=== PATIENT | male | born 1965 | race Caucasian/White ===

== ENCOUNTER 2018-10-29 09:37 | Day surgery (SDC) | payer OTHER ==
[2018-10-28 15:02] VITALS: BMI 40.7
[2018-10-29 11:16] VITALS: TEMP 98.7
[2018-10-29 12:16] VITALS: BP 146/66; PULSE 93
--- NOTE | 2018-10-30 13:01 | PATH ---
Surgical Pathology Report Patient Name: ELHAM ZAPIEN [facility]. Rec. #: [id number] /Age/Gender: 1965 (Age: 53) / M Account: [id number] Location: U-ENDOSCOPY Taken: 10/29/2018 Received: 10/29/2018 Reported: 10/30/2018 Physicians: Luis M Gray M.D. Specimen(s) Received A: LEFT COLON POLYP #1 B: LEFT COLON POLYP #2 C: LEFT COLON POLYP #3 Clinical History History of colon polyp Postoperative diagnosis: Polyps, diverticulosis Final Diagnosis A. COLON, LEFT, POLYP #1, POLYPECTOMY: TUBULAR ADENOMA. B. COLON, LEFT, POLYP #2, BIOPSY: TUBULAR ADENOMA. C. COLON, LEFT, POLYP #3, POLYPECTOMY: TUBULAR ADENOMA. Electronically Signed Reny Paredes M.D. Gross Description A. Received in formalin, labeled "left colon polyp #1" are 2 wagoner, irregular portions of soft tissue measuring 0.3 and 0.4 cm. in greatest dimension. The specimens are submitted in toto in one cassette. B. Received in formalin, labeled "biopsy left colon polyp #2" are 3 wagoner, irregular portions of soft tissue ranging from 0.3-0.5 cm. in greatest dimension. The specimens are submitted in toto in one cassette. C. Received in formalin, labeled "left colon polyp #3" is a wagoner, irregular portion of soft tissue measuring 0.3 cm. in greatest dimension. The specimen is submitted in toto in one cassette. DL10/29/2018 saudi10/29/2018
== END 2018-10-29 12:10 | disposition home or self-care (01) ==
LOC: JASU-ENDO 09:37
PROVIDERS: ATTEND Internal Medicine Gastroenterology
PROC: 0DBG8ZX Excision of Left Large Intestine, Via Natural or Artificial Opening Endoscopic, Diagnostic (ICD-10-PCS; principal; 2018-10-29 10:30)
DX: Z12.11 Encounter for screening for malignant neoplasm of colon (principal); K57.30 Diverticulosis of large intestine without perforation or abscess without bleeding; K64.8 Other hemorrhoids; K63.5 Polyp of colon
CPT/HCPCS: 82962; 88305-TC